=== PATIENT | female | born 1995 | race African-American/Black ===

== ENCOUNTER 2018-07-12 17:30 | Emergency (ER) | payer OTHER ==
[~2018-07-12] VITALS: Ht 160 cm; Wt 73.2 kg
[~2018-07-12 17:30] MED LIST: ABILIFY10 MG OR; ADVAIR DISK1 INH; BACTRIM DS1 TAB OR; BENADRYL 50MG C50 MG OR; CLARITIN10 MG PO; DOXYCYCL HYC100 MG PO; KEFLEX250 MG/5 M OR; MEDDOSEPAK OR; PREDNISONE5 MG PO; PROAIR HFA IN; RISPERDAL2 MG OR; SINGULAIR10 MG PO; TRILEPTAL600 MG OR
[2018-07-12 18:10] LABS: IMMATURE GRANULOCYTES 0.3 % (0.0-5.0); MEAN CELL VOLUME 88.4 fL CALC (80.0-100.0); MEAN CORPUSCULAR HGB 28.9 pG CALC (26.0-32.0); MEAN CORPUSCULAR HGB CONC 32.7 g/L CALC (32.0-36.0); NEUT# 6.4 thou/uL (2.00-7.15); RED BLOOD COUNT 4.57 mill/uL (4.20-5.60); RED CELL DISTRI WIDTH 12.4 % (11.5-15.5)
[2018-07-12 18:25] LABS: HEMATOCRIT 40.4 % (37.0-47.0); HEMOGLOBIN 13.2 g/dl (12.0-16.0)
[2018-07-12 18:30] LABS: ALBUMIN 4.7 g/dL (3.2-5.0); ALKALINE PHOSPHATASE 51 u/l (38-126); BUN 10 mg/dL (7-17); BUN/CREATININE RATIO 13 (12-20 (CALC)); CARBON DIOXIDE 23 mmol/l (22-30); CREATININE 0.8 mg/dL (0.5-1.0); GFR > 60 ML/MIN (>=60 (CALC)); GFR FOR AFR.AMER. > 60 ML/MIN (>=60 (CALC)); POTASSIUM 4.4 mmol/l (3.5-5.1); SODIUM 137 mmol/l (137-146); TOTAL PROTEIN 7.6 g/dL (6.3-8.2)
[2018-07-12 18:32] LABS: ANION GAP 16 (6-22 (CALC)); CHLORIDE 102 mmol/l (95-108); SGOT/AST 34 u/l (14-36)
[2018-07-12] MEDS ORDERED: TRAMADOL HCL50 MG PO (19:51)
[2018-07-12 20:16] VITALS: BP 117/82
== END 2018-07-12 20:19 | disposition home or self-care (01) | DRG 605 ==
LOC: ED 17:30
PROVIDERS: Emergency Medicine
DX: S00.83XA Contusion of other part of head, initial encounter (principal); S09.11XA Strain of muscle and tendon of head, initial encounter; S39.012A Strain of muscle, fascia and tendon of lower back, initial encounter; S76.011A Strain of muscle, fascia and tendon of right hip, initial encounter; V43.53XA Car driver injured in collision with pick-up truck in traffic accident, initial encounter; Z33.1 Pregnant state, incidental
CPT/HCPCS: J0131

== ENCOUNTER 2019-09-05 | Emergency (ER) | payer OTHER ==
[~2019-09-05] MED LIST changes: +TRAMADOL HCL50 MG PO
[2019-09-05 15:24] LABS: URINE BILIRUBIN - DIPSTICK NEGATIVE (NEGATIVE); URINE BLOOD DIPSTICK TRACE-INTACT (NEGATIVE); URINE COLOR YELLOW; URINE GLUCOSE - DIPSTICK NEGATIVE (NEGATIVE); URINE KETONE NEGATIVE (NEGATIVE); URINE LEUK ESTERASE NEGATIVE (Negative); URINE NITRITE - DIPSTICK POSITIVE (Negative); URINE PH 5.5 (4.5-8.0); URINE PROTEIN - DIPSTICK NEGATIVE (NEG-TRACE); URINE SPECIFIC GRAVITY >=1.030; URINE UROBILINOGEN - DIPSTICK 0.2 E.U./dL (0.2)
[2019-09-05 15:53] LABS: URINE CLARITY TURBID; URINE SQUAMOUS EPITHELIAL CELL FEW EPI/hpf (0-FEW)
[2019-09-05 15:54] LABS: URINE BACTERIA MANY hpf
[2019-09-05] MEDS ORDERED: MACRODANTIN100 MG PO (18:00)
[2019-09-05] MEDS ORDERED: FLEXERIL PO (18:02)
== END 2019-09-05 18:12 | disposition home or self-care (01) | DRG 552 ==
DX: S16.1XXA Strain of muscle, fascia and tendon at neck level, initial encounter (principal); M54.6 Pain in thoracic spine; M54.5 Low back pain; M25.511 Pain in right shoulder; N39.0 Urinary tract infection, site not specified; F17.200 Nicotine dependence, unspecified, uncomplicated; V49.50XA Passenger injured in collision with unspecified motor vehicles in traffic accident, initial encounter

== ENCOUNTER 2020-03-06 23:01 | Emergency (ER) | payer OTHER ==
[~2020-03-06] VITALS: Ht 165.1 cm; Wt 68.6 kg
[~2020-03-06 23:01] MED LIST changes: +FLEXERIL PO; +MACRODANTIN100 MG PO
[2020-03-06 23:52] LABS: IMMATURE GRANULOCYTES 0.2 % (0.0-5.0); MEAN CELL VOLUME 87.6 fL CALC (80.0-100.0); MEAN CORPUSCULAR HGB 29.2 pG CALC (26.0-32.0); MEAN CORPUSCULAR HGB CONC 33.3 g/dL CAL (32.0-36.0); NEUT# 5.04 thou/uL (2.00-7.15); RED BLOOD COUNT 3.63 mill/uL (4.20-5.60); RED CELL DISTRI WIDTH 12.8 % (11.5-15.5)
[2020-03-06 23:53] LABS: HEMATOCRIT 31.8 % (37.0-47.0); HEMOGLOBIN 10.6 g/dl (12.0-16.0)
[2020-03-07 00:34] LABS: ALKALINE PHOSPHATASE 50 u/l (38-126); AMYLASE 46 u/l (30-110); ANION GAP 11 (6-22 (CALC)); BUN 6 mg/dL (7-17); BUN/CREATININE RATIO 12 (12-20 (CALC)); CARBON DIOXIDE 21 mmol/l (22-30); CHLORIDE 108 mmol/l (95-108); CREATININE 0.5 mg/dL (0.5-1.0); GFR > 60 ML/MIN (>=60 (CALC)); GFR FOR AFR.AMER. > 60 ML/MIN (>=60 (CALC)); LIPASE 59 u/l (23-300); POTASSIUM 3.7 mmol/l (3.5-5.1); SGOT/AST 20 u/l (14-36); SODIUM 135 mmol/l (137-146)
[2020-03-07 00:37] LABS: BILIRUBIN, TOTAL 0.2 mg/dL (0.0-1.4); TOTAL PROTEIN 5.5 g/dL (6.3-8.2)
[2020-03-07 00:46] LABS: MYOGLOBIN 11 ng/mL (0 - 62)
[2020-03-07 01:10] VITALS: BP 102/70
== END 2020-03-07 01:38 | disposition home or self-care (01) ==
LOC: ED 23:01
PROVIDERS: Emergency Medicine
DX: O26.892 Other specified pregnancy related conditions, second trimester (principal); R07.89 Other chest pain; Z3A.18 18 weeks gestation of pregnancy

== ENCOUNTER 2021-04-14 07:15 | Emergency (ER) | payer OTHER ==
[~2021-04-14] VITALS: Ht 165.1 cm; Wt 81.0 kg
[2021-04-14] MEDS ORDERED: ZPAK PO (09:00)
[2021-04-14 09:25] VITALS: BP 118/80
== END 2021-04-14 09:25 | disposition home or self-care (01) ==
LOC: ED 07:15
DX: J32.9 Chronic sinusitis, unspecified (principal); J45.909 Unspecified asthma, uncomplicated; Z20.822 Contact with and (suspected) exposure to COVID-19

== ENCOUNTER 2021-09-17 08:49 | Emergency (ER) | payer OTHER ==
[~2021-09-17] VITALS: Ht 165.1 cm; Wt 80.2 kg
[~2021-09-17 08:49] MED LIST changes: +ZPAK PO
[2021-09-17] MEDS ORDERED: DAYSEE1 TAB (09:16)
[2021-09-17 09:36] LABS: IMMATURE GRANULOCYTES 0.1 % (0.0-5.0); MEAN CELL VOLUME 90.1 fL CALC (80.0-100.0); MEAN CORPUSCULAR HGB 29.4 pG CALC (26.0-32.0); MEAN CORPUSCULAR HGB CONC 32.7 g/dL CAL (32.0-36.0); NEUT# 5.38 thou/uL (2.00-7.15); RED BLOOD COUNT 4.45 mill/uL (4.20-5.60); RED CELL DISTRI WIDTH 12.1 % (11.5-15.5)
[2021-09-17 09:39] LABS: HEMATOCRIT 40.1 % (37.0-47.0); HEMOGLOBIN 13.1 g/dl (12.0-16.0)
[2021-09-17 09:41] LABS: URINE BILIRUBIN - DIPSTICK NEGATIVE (NEGATIVE); URINE BLOOD DIPSTICK SMALL (NEGATIVE); URINE COLOR YELLOW; URINE GLUCOSE - DIPSTICK NEGATIVE (NEGATIVE); URINE KETONE NEGATIVE (NEGATIVE); URINE PH 6.5 (4.5-8.0); URINE PROTEIN - DIPSTICK NEGATIVE (NEG-TRACE); URINE SPECIFIC GRAVITY 1.015
[2021-09-17 09:42] LABS: URINE LEUK ESTERASE SMALL (NEGATIVE); URINE NITRITE - DIPSTICK NEGATIVE (Negative)
[2021-09-17 09:44] LABS: URINE SQUAMOUS EPITHELIAL CELL MANY EPI/hpf (0-FEW)
[2021-09-17 09:49] LABS: HCG SERUM/URINE (NEG/POS) NEGATIVE (NEGATIVE)
[2021-09-17 10:12] LABS: ALKALINE PHOSPHATASE 68 u/l (38-126); AMYLASE 75 u/l (30-110); ANION GAP 12 (6-22 (CALC)); BUN 9 mg/dL (7-17); BUN/CREATININE RATIO 10 (12-20 (CALC)); CARBON DIOXIDE 25 mmol/l (22-30); CHLORIDE 105 mmol/l (95-108); CREATININE 0.8 mg/dL (0.5-1.0); ETHYL ALCOHOL 0 mg/dl (0-30); GFR > 60 ML/MIN (>=60 (CALC)); GFR FOR AFR.AMER. > 60 ML/MIN (>=60 (CALC)); LIPASE 45 u/l (23-300); POTASSIUM 4.3 mmol/l (3.5-5.1); SGOT/AST 17 u/l (14-36); SODIUM 139 mmol/l (137-146)
[2021-09-17 10:13] LABS: ALBUMIN 3.9 g/dL (3.2-5.0); BILIRUBIN, TOTAL 0.6 mg/dL (0.0-1.4); TOTAL PROTEIN 7.2 g/dL (6.3-8.2)
[2021-09-17] MEDS ORDERED: BACTRIM DS1 TAB PO (11:35)
[2021-09-17] MEDS ORDERED: ZOFRAN4 MG/TAB PO (11:35)
[2021-09-17] MEDS ORDERED: COLACE100 MG PO (11:35)
[2021-09-17 11:41] VITALS: BP 131/89
== END 2021-09-17 11:48 | disposition home or self-care (01) ==
LOC: ED 08:49
DX: R10.13 Epigastric pain (principal); R11.2 Nausea with vomiting, unspecified; J06.9 Acute upper respiratory infection, unspecified; N39.0 Urinary tract infection, site not specified; B96.1 Klebsiella pneumoniae [K. pneumoniae] as the cause of diseases classified elsewhere; K59.00 Constipation, unspecified; J45.909 Unspecified asthma, uncomplicated; Z20.822 Contact with and (suspected) exposure to COVID-19
CPT/HCPCS: Q9967; S0164

== ENCOUNTER 2022-03-06 10:26 | Emergency (ER) | payer OTHER ==
[2022-03-06] VITALS (13 sets, daily range): BP systolic 94–135; BP diastolic 51–86
[~2022-03-06] VITALS: Ht 165.1 cm; Wt 79.5 kg
[~2022-03-06 10:26] MED LIST changes: +BACTRIM DS1 TAB PO; +COLACE100 MG PO; +DAYSEE1 TAB; +ZOFRAN4 MG/TAB PO
[2022-03-06] MEDS ORDERED: ALL DAY10 MG PO (10:51)
[2022-03-06] MEDS ORDERED: BUSPIRONE5 MG PO (10:51)
[2022-03-06] MEDS ORDERED: ESCITALOPRAM OX10 MG PO (10:52)
[2022-03-06] MEDS ORDERED: LORAZEPAM0.5 MG PO (10:53)
[2022-03-06] MEDS ORDERED: FLOVENT HF110 MCG/AC IN (10:53)
[2022-03-06] MEDS ORDERED: TRILEPTAL150 MG PO (10:54)
[2022-03-06] MEDS ORDERED: PROTONIX40 M2 PO (10:54)
[2022-03-06] MEDS ORDERED: LORYNA1 TAB PO (10:54)
== END 2022-03-06 13:50 | disposition home or self-care (01) ==
LOC: ED 10:26
DX: S80.211A Abrasion, right knee, initial encounter (principal); J45.909 Unspecified asthma, uncomplicated; F32.A Depression, unspecified; W10.9XXA Fall (on) (from) unspecified stairs and steps, initial encounter; Y92.009 Unspecified place in unspecified non-institutional (private) residence as the place of occurrence of the external cause

== ENCOUNTER 2022-03-15 03:14 | Emergency (ER) | payer OTHER ==
[~2022-03-15] VITALS: Ht 165.1 cm; Wt 54.1 kg
[~2022-03-15 03:14] MED LIST changes: +ALL DAY10 MG PO; +BUSPIRONE5 MG PO; +ESCITALOPRAM OX10 MG PO; +FLOVENT HF110 MCG/AC IN; +LORAZEPAM0.5 MG PO; +LORYNA1 TAB PO; +PROTONIX40 M2 PO; +TRILEPTAL150 MG PO
[2022-03-15 03:20] VITALS: BP 145/126
[2022-03-15] MEDS ORDERED: ZITHROMAX TRI-500 MG PO (03:25)
[2022-03-15 03:31] VITALS: BP 125/87
[2022-03-15 03:33] VITALS: BP 125/87
== END 2022-03-15 03:42 | disposition home or self-care (01) ==
LOC: ED 03:14
DX: J03.90 Acute tonsillitis, unspecified (principal); J45.909 Unspecified asthma, uncomplicated; F32.A Depression, unspecified

== ENCOUNTER 2022-05-12 10:39 | Emergency (ER) | payer OTHER ==
[~2022-05-12] VITALS: Ht 165.1 cm; Wt 81.6 kg
[~2022-05-12 10:39] MED LIST changes: +ZITHROMAX TRI-500 MG PO
[2022-05-12 10:47] VITALS: BP 123/83
[2022-05-12 11:00] VITALS: BP 104/73
[2022-05-12 11:05] LABS: BASO% 0.2 % (0-3); EOS% 6.8 % (0-8); HEMOGLOBIN 13.6 g/dl (12.0-16.0); LYMPH% 29.9 % (15-41); MEAN CELL VOLUME 89.1 fL CALC (80.0-100.0); MEAN CORPUSCULAR HGB 30.3 pG CALC (26.0-32.0); MONO% 4.5 % (2-13); NEUT# 4.98 thou/uL (2.00-7.15); NEUT% 58.6 % (42-76); RED BLOOD COUNT 4.49 mill/uL (4.20-5.60); RED CELL DISTRI WIDTH 12.6 % (11.5-15.5)
[2022-05-12 11:15] VITALS: BP 112/78
[2022-05-12 11:16] LABS: ALBUMIN 4.4 g/dL (3.2-5.0); ALKALINE PHOSPHATASE 70 u/l (38-126); ANION GAP 7 (6-22 (CALC)); BILIRUBIN, TOTAL 0.7 mg/dL (0.0-1.4); BUN 9 mg/dL (7-17); BUN/CREATININE RATIO 11 (12-20 (CALC)); CARBON DIOXIDE 30 mmol/l (22-30); CHLORIDE 105 mmol/l (95-108); CREATININE 0.8 mg/dL (0.5-1.0); GFR FOR AFR.AMER. > 60 ML/MIN (>=60 (CALC)); GFR OTHER RACES > 60 ML/MIN (>=60 (CALC)); LIPASE 57 u/l (23-300); POTASSIUM 4.3 mmol/l (3.5-5.1); SGOT/AST 28 u/l (14-36); SODIUM 137 mmol/l (137-146); TOTAL PROTEIN 7.4 g/dL (6.3-8.2)
[2022-05-12 11:16] LABS: HCG SERUM/URINE (NEG/POS) NEGATIVE (NEGATIVE)
[2022-05-12 11:30] VITALS: BP 112/81
[2022-05-12 12:41] LABS: URINE BILIRUBIN - DIPSTICK NEGATIVE (NEGATIVE); URINE BLOOD DIPSTICK NEGATIVE (NEGATIVE); URINE COLOR YELLOW; URINE GLUCOSE - DIPSTICK NEGATIVE (NEGATIVE); URINE KETONE NEGATIVE (NEGATIVE); URINE LEUK ESTERASE TRACE (NEGATIVE); URINE PROTEIN - DIPSTICK NEGATIVE (NEG-TRACE)
[2022-05-12 12:42] LABS: URINE NITRITE - DIPSTICK NEGATIVE (Negative)
[2022-05-12 13:05] VITALS: BP 112/81
== END 2022-05-12 13:15 | disposition home or self-care (01) ==
LOC: ED 10:39
PROVIDERS: Family Medicine
DX: K80.20 Calculus of gallbladder without cholecystitis without obstruction (principal); J11.1 Influenza due to unidentified influenza virus with other respiratory manifestations; J45.909 Unspecified asthma, uncomplicated; F31.9 Bipolar disorder, unspecified; Z20.822 Contact with and (suspected) exposure to COVID-19

== ENCOUNTER 2022-10-19 10:40 | Emergency (ER) | payer OTHER ==
[~2022-10-19] VITALS: Ht 165.1 cm; Wt 79.0 kg
[2022-10-19] VITALS (9 sets, daily range): BP systolic 90–143; BP diastolic 54–121
[2022-10-19 11:22] LABS: BASO% 0.5 % (0-3); EOS% 2.2 % (0-8); IMMATURE GRANULOCYTES 0.1 % (0.0-5.0); LYMPH% 30.4 % (15-41); MEAN CELL VOLUME 87.6 fL CALC (80.0-100.0); MEAN CORPUSCULAR HGB 28.5 pG CALC (26.0-32.0); MEAN CORPUSCULAR HGB CONC 32.6 g/dL CAL (32.0-36.0); MONO% 4.8 % (2-13); NEUT# 6.45 thou/uL (2.00-7.15); RED BLOOD COUNT 4.91 mill/uL (4.20-5.60); RED CELL DISTRI WIDTH 12.1 % (11.5-15.5)
[2022-10-19 11:33] LABS: ALBUMIN 4.7 g/dL (3.2-5.0); ALKALINE PHOSPHATASE 74 u/l (38-126); ANION GAP 16 (6-22 (CALC)); BILIRUBIN, TOTAL 0.9 mg/dL (0.02-1.3); BUN 11 mg/dL (7-17); BUN/CREATININE RATIO 13 (12-20 (CALC)); CARBON DIOXIDE 25 mmol/l (22-30); CHLORIDE 102 mmol/l (95-108); CREATININE 0.8 mg/dL (0.5-1.0); GFR FOR AFR.AMER. > 60 ML/MIN (>=60 (CALC)); GFR OTHER RACES > 60 ML/MIN (>=60 (CALC)); POTASSIUM 3.8 mmol/l (3.5-5.1); SGOT/AST 30 u/l (14-36); SODIUM 139 mmol/l (137-146); TOTAL PROTEIN 7.9 g/dL (6.3-8.2)
[2022-10-19 11:52] LABS: URINE BILIRUBIN - DIPSTICK NEGATIVE (NEGATIVE); URINE BLOOD DIPSTICK TRACE-INTACT (NEGATIVE); URINE COLOR YELLOW; URINE GLUCOSE - DIPSTICK NEGATIVE (NEGATIVE); URINE KETONE TRACE mg/dL (NEGATIVE); URINE PROTEIN - DIPSTICK 30 mg/dL (NEG-TRACE); URINE SPECIFIC GRAVITY 1.015
[2022-10-19 12:04] LABS: URINE LEUK ESTERASE TRACE (NEGATIVE); URINE NITRITE - DIPSTICK NEGATIVE (Negative)
[2022-10-19 12:05] LABS: URINE EPITHELIAL CELLS FEW EPI/hpf (0-FEW); URINE MUCUS FEW hpf (NONE-FEW); URINE RBC 0-2 RBC/hpf (0-5); URINE WBC 0-2 WBC/hpf (0-5)
== END 2022-10-19 13:42 | disposition home or self-care (01) ==
LOC: ED 10:40
PROVIDERS: Family Medicine
DX: R07.9 Chest pain, unspecified (principal); F41.0 Panic disorder [episodic paroxysmal anxiety]; F31.9 Bipolar disorder, unspecified; J45.909 Unspecified asthma, uncomplicated

== ENCOUNTER 2024-04-12 18:20 | Emergency (ER) | payer MEDICARE, MEDICAID ==
[~2024-04-12] VITALS: Ht 165.1 cm; Wt 82.8 kg
[~2024-04-12 18:20] MED LIST changes: +TRAMADOL HYDROC50 M1 PO; +VENTOLIN HFA108 MCG
[2024-04-12 19:52] LABS: BASO% 0.4 % (0-3); EOS% 3.7 % (0-8); HEMATOCRIT 40.8 % (37.0-47.0); HEMOGLOBIN 13.3 g/dl (12.0-16.0); IMMATURE GRANULOCYTES 0.1 % (0.0-5.0); LYMPH% 38.9 % (15-41); MEAN CELL VOLUME 90.3 fL CALC (80.0-100.0); MEAN CORPUSCULAR HGB 29.4 pG CALC (26.0-32.0); MEAN CORPUSCULAR HGB CONC 32.6 g/dL CAL (32.0-36.0); MONO% 5.7 % (2-13); NEUT# 4.78 thou/uL (2.00-7.15); NEUT% 51.2 % (42-76); RED BLOOD COUNT 4.52 mill/uL (4.20-5.60); RED CELL DISTRI WIDTH 12.2 % (11.5-15.5)
[2024-04-12] MEDS ORDERED: PROVERA10 MG PO (20:02)
[2024-04-12 20:12] VITALS: BP 138/76
== END 2024-04-12 20:12 | disposition home or self-care (01) ==
LOC: ED 18:20
PROVIDERS: Family Medicine
DX: N92.1 Excessive and frequent menstruation with irregular cycle (principal); I25.10 Atherosclerotic heart disease of native coronary artery without angina pectoris; J45.909 Unspecified asthma, uncomplicated; F32.A Depression, unspecified